=== PATIENT | female | born 1995 | race Caucasian/White ===

== ENCOUNTER 2019-03-30 18:56 | Emergency (ER) | payer BC, OTHER ==
[2019-03-30 19:29] VITALS: BMI 27.9
--- NOTE | 2019-03-30 19:30 | PDOC ---
Rapid Medical Evaluation Medical Evaluation: Allergies Allergy/AdvReac Type Severity Reaction Status Date / Time No Known Allergies Allergy Verified 03/27/12 02:50 03/30/19 19:23 I have performed a brief in-person evaluation of this patient. The patient presents with a chief complaint of: Abd pain w/ n/v since 9am today. No diarrhea but noticed ? BRB in stool on 1 episode. No f/c. No recent travel, sick contact or abx use. No sig pmhx Pertinent physical exam findings:well maureen and tachy to 129 I have ordered the following:labs/ua/preg The patient will proceed to the ED for further evaluation. Discharge Disposition - Diagnosis Nausea and vomiting Qualifiers: Vomiting type: unspecified Vomiting Intractability: non-intractable Qualified Code(s): R11.2 - Nausea with vomiting, unspecified - Referrals - Patient Instructions - Post Discharge Activity
[2019-03-30] MEDS ORDERED: SODIUM CHLORIDE 1,000 ML IV STA ×2 (20:49→22:31)
--- NOTE | 2019-03-30 20:49 | PDOC ---
History of Present Illness - General Chief Complaint: Nausea/Vomiting Stated Complaint: VOMITING Time Seen by Provider: 03/30/19 19:25 History Source: Patient - History of Present Illness Initial Comments: 03/30/19 21:04 23 year old female c/o Nausea/ vomiting 8-9 x today, had two BMs today denies fever / chills/. reports vern bleeding x 1 with normal BMs. patient reports generalized abdominal cramping. patient reports that she ate at [employer] yesterday. Past History - Past Medical History Allergies/Adverse Reactions: Allergies Allergy/AdvReac Type Severity Reaction Status Date / Time tomato Allergy Verified 03/30/19 19:29 Home Medications: Ambulatory Orders No Home Medications 0 dose .ROUTE UTDICT 03/27/12 Asthma: Yes (mild) COPD: No - Psycho Social/Smoking Cessation Hx Smoking Status: No Smoking History: Never smoked Number of Cigarettes Smoked Daily: 0 Drug/Substance Use Hx: No Substance Use Type: None Review of Systems - Review of Systems Able to Perform ROS?: Yes Is the patient limited Danish proficient: No ABD/GI: Yes: Blood Streaked Bowels, Nausea, Vomiting, Abdominal cramping *Physical Exam - Vital Signs Last Vital Signs Temp Pulse Resp BP Pulse Ox 97.8 F 130 H 18 114/76 97 03/30/19 19:26 03/30/19 19:26 03/30/19 19:26 03/30/19 19:26 03/30/19 19:26 - Physical Exam General Appearance: Yes: Appropriately Dressed Gastrointestinal/Abdominal: positive: Normal Bowel Sounds, Tender (generalized) , Soft Rectal Exam: positive: heme negative stool, normal rectal tone, other (no bleeding per rectum). negative: hemorrhoids Extremity: positive: Normal Capillary Refill, Normal Inspection Integumentary: positive: Dry, Warm, Pale Neurologic: positive: Fully Oriented, Alert ED Treatment Course - LABORATORY CBC & Chemistry Diagram: 03/30/19 21:00 03/30/19 21:00 ED Progress Note - Progress Note Progress Note: 03/30/19 22:48 A: gastronteritis P: CBC CMP IVF UA UCX Discharge - Discharge Information Problems reviewed: Yes Clinical Impression/Diagnosis: Gastroenteritis Nausea and vomiting Qualifiers: Vomiting type: unspecified Vomiting Intractability: non-intractable Qualified Code(s): R11.2 - Nausea with vomiting, unspecified Disposition: HOME - Follow up/Referral - Patient Discharge Instructions Patient Printed Discharge Instructions: DI for Vomiting -- Adult Additional Instructions: drink plenty of fluids start a BRAT ( bananas, rice apples toast) follow up with your doctor return to the ER if symptoms worsen - Post Discharge Activity Work/Back to School Note: Back to Work, Back to School
[2019-03-30] MEDS ORDERED: ONDANSETRON 4 MG/2 ML VIAL IVPUSH ONE (20:50)
[2019-03-30] MEDS ORDERED: ONDANSETRON 4 MG/2 ML VIAL ONE (21:09)
[2019-03-30 21:40] LABS: BASO % 0.4 % (0-2.0); EOS % 0.1 % (0-4.5); HEMATOCRIT 45.4 % (32.4-45.2); HEMOGLOBIN 15.4 GM/dL (10.7-15.3); LYMPH % 5.1 % (8-40); MCH 31.1 pg (25.7-33.7); MCHC 33.9 g/dl (32.0-36.0); MEAN CELL VOLUME 91.7 fl (80-96); MEAN PLT VOLUME 9.9 fl (7.5-11.1); MONO % 1.9 % (3.8-10.2); NEUT % 92.5 % (42.8-82.8); PLATELET COUNT 266 K/MM3 (134-434); RBC 4.94 M/mm3 (3.60-5.2); RDW 13.2 % (11.6-15.6); WHITE BLOOD COUNT 7.8 K/mm3 (4.0-10.0)
[2019-03-30 22:24] LABS: ALBUMIN 4.3 g/dl (3.4-5.0); BILIRUBIN,TOTAL 0.6 mg/dL (0.2-1); BLOOD UREA NITROGEN 15.1 mg/dL (7-18); CALCIUM 9.1 mg/dL (8.5-10.1); CREATININE 0.5 mg/dL (0.55-1.3); TOT PROT 7.6 g/dl (6.4-8.2)
[2019-03-30 22:57] LABS: PLATELET ESTIMATE ADEQUATE
[2019-03-30 23:38] LABS: URINE APPEARANCE CLOUDY; URINE BILIRUBIN NEGATIVE (NEGATIVE); URINE COLOR YELLOW; URINE GLUCOSE (UA) NEGATIVE (NEGATIVE); URINE KETONE 4+ (NEGATIVE); URINE LEUK ESTERASE NEGATIVE (NEGATIVE); URINE NITRITE NEGATIVE (NEGATIVE); URINE PROTEIN NEGATIVE (NEGATIVE)
[2019-03-31 00:27] VITALS: BP 105/63; PULSE 109; TEMP 96.1
--- NOTE | 2019-03-31 15:51 | EKG ---
Test Reason : Blood Pressure : / mmHG Vent. Rate : 094 BPM Atrial Rate : 094 BPM P-R Int : 134 ms QRS Dur : 092 ms QT Int : 350 ms P-R-T Axes : 051 061 015 degrees QTc Int : 437 ms NORMAL SINUS RHYTHM LEFT ATRIAL ENLARGEMENT NONSPECIFIC ST ABNORMALITY ABNORMAL ECG Confirmed by MD APRIL, CALLY ([id number]) on 03/31/2019 3:51:03 PM Referred By: Confirmed By:CALLY CHEN MD
== END 2019-03-31 00:26 | disposition home or self-care (01) ==
LOC: JER 18:56
PROC: 3E0337Z Introduction of Electrolytic and Water Balance Substance into Peripheral Vein, Percutaneous Approach (ICD-10-PCS; principal; 2019-03-30)
PROC: 3E033GC Introduction of Other Therapeutic Substance into Peripheral Vein, Percutaneous Approach (ICD-10-PCS; 2019-03-30)
DX: K52.9 Noninfective gastroenteritis and colitis, unspecified (principal); Z91.018 Allergy to other foods
CPT/HCPCS: 36415; 80053; 81003; 83690; 84703; 85025; 93005; 93010; 99283-25; J7030

== ENCOUNTER 2022-01-19 23:28 | Emergency (ER) | payer BC ==
[2022-01-19 23:36] VITALS: BP 131/84; PULSE 106; RESP 18; TEMP 97.7; BMI 31.1
[2022-01-20 00:54] LABS: ARTERIAL BLD GAS O2 SATURATION 97.4 % (95-98); ARTERIAL BLOOD GAS BASE EXCESS -1.1 mmol/L (-2-2); ARTERIAL BLOOD GAS PO2 95.1 mmHg (80-100); ARTERIAL BLOOD GAS pH 7.415 (7.350-7.450)
== END 2022-01-20 01:55 | disposition home or self-care (01) ==
LOC: JER 23:28
DX: T58.91XA Toxic effect of carbon monoxide from unspecified source, accidental (unintentional), initial encounter (principal)
CPT/HCPCS: 36600; 82375; 82803; 99283-25